=== PATIENT | male | born 1945 | race Caucasian/White ===

== ENCOUNTER 2019-12-29 09:19 | Observation (INO) ==
[2019-12-29] MEDS ORDERED: Ondansetron 4 MG/2 ML VIAL IVP PRN (11:00)
[2019-12-29] MEDS ORDERED: Naloxone 0.4 MG/ML INJ IVP PRN (11:00)
[2019-12-29] MEDS ORDERED: Furosemide 40 MG/4 ML VIAL IVP ONE (12:50)
[2019-12-29] MEDS ORDERED: *HR* Labetalol 20 MG/4 ML SYRINGE IVP PRN (13:03)
[2019-12-29 15:45] LABS: Bacteria,Urine Few per hpf (None-Few); Bilirubin,Urine Negative (Negative); Blood,Urine Trace (Negative); Clarity,Urine Clear (Clear); Color,Urine Light-Yellow (Yellow); Glucose,Urine (UA) Normal (Normal); Ketones,Urine Negative (Negative); Leukocyte Esterase,Urine Negative (Negative); Mucus,Urine Few per lpf (None-Few); Nitrite,Urine Negative (Negative); Protein,Urine 50 mg/dL (Neg-Trace); RBC,Urine 0-3 per hpf (0-3); Urobilinogen,Urine Normal (Normal); WBC,Urine 0-3 per hpf (0-3)
[2019-12-29] MEDS: *HR* Heparin 5,000 UNIT/ML VIAL SQ SCH (17:48)
[2019-12-29] MEDS ORDERED: Perflutren Lipid Microsphere 1.3 ML in 0.9 % Sodium Chloride 8.7 ML IVP ONE (17:58)
[2019-12-30] MEDS: *HR* Heparin 5,000 UNIT/ML VIAL SQ SCH ×2 (05:05→17:45)
[2019-12-30 07:59] LABS: Basophils % 0.7 %; Eosinophils # 0.2 K/mcL (0.0-0.6); Hemoglobin 13.2 g/dL (12.9-16.9); Immature Granulocytes % 0.2 % (0-4); Immature Platelets 3.5 % (1.1-6.1); Lymphocytes # 1.2 K/mcL (0.6-4.6); Lymphocytes % 21.3 %; Mean Corpuscular Hemoglobin 31.4 pg (28.0-33.3); Monocytes # 0.6 K/mcL (0.0-1.3); Monocytes % 10.3 %; Neutrophils # 3.7 K/mcL (1.6-8.9); Platelet Count 124 K/mcL (140-400); Red Blood Count 4.21 M/mcL (4.19-5.50); Red Cell Distribution Width 13.2 % (11.5-14.5); Segmented Neutrophils % 63.5 %; White Blood Count 5.8 K/mcL (4.3-11.1)
[2019-12-30] MEDS ORDERED: *HR* Labetalol 20 MG/4 ML SYRINGE IVP PRN ×2 (08:53→15:10)
[2019-12-30 09:22] LABS: Calcium 9.8 mg/dL (8.6-10.3); Potassium 3.6 mEq/L (3.5-5.1)
[2019-12-30] MEDS: Aspirin Enteric Coated 81 MG Tablet PO SCH (09:34)
[2019-12-30 10:55] LABS: Uric Acid 7.4 mg/dL (2.3-7.6)
[2019-12-30] MEDS ORDERED: Albumin 25% 25gram/100mL 25 GM/100 ML IV.SOLN IVPB ONE (15:00)
[2019-12-30] MEDS ORDERED: Furosemide 40 MG/4 ML VIAL IVP ONE (15:30)
[2019-12-31] MEDS: *HR* Heparin 5,000 UNIT/ML VIAL SQ SCH ×2 (05:55→16:24)
[2019-12-31] MEDS: Aspirin Enteric Coated 81 MG Tablet PO SCH (07:07)
[2019-12-31 11:36] LABS: Calcium 9.4 mg/dL (8.6-10.3); Potassium 3.9 mEq/L (3.5-5.1)
[2019-12-31 20:50] VITALS: BP 169/87
[2020-01-03] MEDS ORDERED: Ergocalciferol (VIT D2) 50,000 UNIT (1.25MG) CAP PO SCH (09:00)
== END 2019-12-31 22:00 | disposition short-term general hospital (02) ==
LOC: 2ANU → SUATTDRO 10:53
PROVIDERS: ADMIT Internal Medicine; ATTEND Internal Medicine

== ENCOUNTER 2020-04-03 10:08 | Inpatient (IN) ==
[2020-04-03 10:46] LABS: Basophils % 0.2 %; Eosinophils % 0.3 %; Hematocrit 21.1 % (37.5-50.1); Hemoglobin 6.9 g/dL (12.9-16.9); Immature Granulocytes % 0.9 % (0-4); Lymphocytes # 0.4 K/mcL (0.6-4.6); Mean Corpuscular HGB Conc 32.7 g/dL (31.6-35.5); Mean Corpuscular Hemoglobin 29.1 pg (28.0-33.3); Mean Platelet Volume 10.6 fL (9.4-12.4); Monocytes # 1.1 K/mcL (0.0-1.3); Monocytes % 8.4 %; Red Blood Count 2.37 M/mcL (4.19-5.50); Red Cell Distribution Width 16.3 % (11.5-14.5); Segmented Neutrophils % 87.2 %
[2020-04-03 10:48] LABS: White Blood Count 12.9 K/mcL (4.3-11.1)
[2020-04-03 10:49] LABS: Neutrophils # 11.3 K/mcL (1.6-8.9); Platelet Count 83 K/mcL (140-400)
[2020-04-03 11:00] LABS: INR 1.6; Prothrombin Time 18.5 Seconds (9.4-12.1)
[2020-04-03 11:07] LABS: Albumin 2.9 g/dL (3.5-5.7); Bilirubin,Direct 0.2 mg/dL (0.0-0.2); Bilirubin,Indirect 0.4 mg/dL (0.0-1.0); Bilirubin,Total 0.6 mg/dL (0.3-1.0); Calcium 8.5 mg/dL (8.6-10.3); Magnesium 1.9 mg/dL (1.6-2.6); Phosphorous 4.3 mg/dL (2.7-4.5); Potassium 3.9 mEq/L (3.5-5.1); Total Protein 5.9 g/dL (6.4-8.9)
[2020-04-03 11:11] LABS: Troponin I 0.19 ng/mL (< 0.04)
[2020-04-03] MEDS ORDERED: Aspirin 81 MG TAB.CHEW PO ONE (11:14)
[2020-04-03 11:58] LABS: Adenovirus Not Detected (Not Detect); Bordetella Pertussis Not Detected (Not Detect); Chlamydophila pneumoniae Not Detected (Not Detect); Coronavirus 229E Not Detected (Not Detect); Coronavirus HKU1 Not Detected (Not Detect); Coronavirus NL63 Not Detected (Not Detect); Coronavirus OC43 Not Detected (Not Detect); Human Metapneumovirus Not Detected (Not Detect); Human Rhinovirus/Enterovirus Not Detected (Not Detect); Influenza A Subtype 2009 H1 Not Detected (Not Detect); Influenza B Not Detected (Not Detect); Mycoplasma pneumoniae Not Detected (Not Detect); Parainfluenza Virus 1 Not Detected (Not Detect); Parainfluenza Virus 2 Not Detected (Not Detect); Parainfluenza Virus 3 Not Detected (Not Detect); Parainfluenza Virus 4 Not Detected (Not Detect); Respiratory Syncytial Virus Not Detected (Not Detect); SARS-CoV-2 Not Detected (Not Detect)
[2020-04-03] MEDS ORDERED: Ondansetron ODT 4 MG TAB.RAPDIS SL PRN (12:21)
[2020-04-03] MEDS ORDERED: Naloxone 0.4 MG/ML INJ IVP PRN (12:21)
[2020-04-03] MEDS ORDERED: Acetaminophen 325 MG TABLET PO PRN (12:21)
[2020-04-03] MEDS ORDERED: Nitroglycerin 0.4 MG TAB.SUBL SL PRN (15:52)
[2020-04-03] MEDS ORDERED: Loratadine 10 MG TABLET PO PRN (15:52)
[2020-04-03] MEDS ORDERED: 0.9 % Sodium Chloride 250 ML IVC SCH (16:00)
[2020-04-03] MEDS ORDERED: Ergocalciferol (VIT D2) 50,000 UNIT (1.25MG) CAP PO SCH (16:00)
[2020-04-03] MEDS: carvediloL 6.25 MG TABLET PO SCH (16:49)
[2020-04-03] MEDS ORDERED: *HR* Heparin 5,000 UNIT/ML VIAL IVP PRN ×2 (20:00)
[2020-04-03] MEDS ORDERED: *HR* Heparin 5,000 UNIT/ML VIAL IVP ONE (20:00)
[2020-04-03] MEDS: Heparin 25,000UNIT/250ML 1/2NS 25,000 UNIT/250 ML IV.SOLN IVC SCH (21:41)
[2020-04-04 02:08] LABS: Hematocrit 21.1 % (37.5-50.1); Immature Platelets 1.9 % (1.1-6.1); Mean Corpuscular HGB Conc 33.2 g/dL (31.6-35.5); Mean Corpuscular Hemoglobin 29.5 pg (28.0-33.3); Mean Platelet Volume 10.4 fL (9.4-12.4); Red Blood Count 2.37 M/mcL (4.19-5.50); Red Cell Distribution Width 16.5 % (11.5-14.5); White Blood Count 10.8 K/mcL (4.3-11.1)
[2020-04-04 02:27] LABS: Calcium 7.9 mg/dL (8.6-10.3); Magnesium 1.8 mg/dL (1.6-2.6); Phosphorous 4.3 mg/dL (2.7-4.5)
[2020-04-04] MEDS ORDERED: Vancomycin 1,500 MG/265 ML IV.SOLN IVPB ONE (08:43)
[2020-04-04] MEDS ORDERED: Perflutren Lipid Microsphere 1.3 ML in 0.9 % Sodium Chloride 8.7 ML IVP PRN (08:43)
[2020-04-04] MEDS ORDERED: Cefepime HCl 1,000 MG in 0.9 % Sodium Chloride Mini Bag 100 ML IVPB SCH (09:00)
[2020-04-04] MEDS: carvediloL 6.25 MG TABLET PO SCH ×2 (10:52→17:44)
[2020-04-04] MEDS: Multivit/Ca/Min/Fe/FA 1 TAB TABLET PO SCH (10:52)
[2020-04-04] MEDS: *HR* Amiodarone 200 MG TABLET PO SCH (10:52)
[2020-04-04] MEDS: Aspirin Enteric Coated 81 MG Tablet PO SCH (10:52)
[2020-04-04] MEDS: allopurinoL 100 MG TABLET PO SCH (10:52)
[2020-04-04] MEDS: *HR* HYDROcodone/Acet 5/325 mg TABLET PO PRN ×2 (13:24→20:12)
[2020-04-04 13:56] LABS: Hepatitis B Surface Antigen Nonreactive (Nonreactive)
[2020-04-04 14:17] LABS: Hepatitis B Core IgM Nonreactive (Nonreactive)
[2020-04-04 14:32] LABS: Enterococcus by PCR Not Detected (Not Detect); blaKPC Carbapenem-Resist Gene Not Detected (Not Detect); mecA Methicillin-Resist Gene Not Detected (Not Detect); vanA/B Vancomycin-Resist Genes Not Detected (Not Detect)
[2020-04-04 14:33] LABS: Acinetobacter baumannii by PCR Not Detected (Not Detect); Candida albicans by PCR Not Detected (Not Detect); Candida glabrata by PCR Not Detected (Not Detect); Candida krusei by PCR Not Detected (Not Detect); Candida parapsilosis by PCR Not Detected (Not Detect); Candida tropicalis by PCR Not Detected (Not Detect); Enterobacter cloacae Cmplx PCR Not Detected (Not Detect); Enterobacteriaceae by PCR Not Detected (Not Detect); Escherichia coli by PCR Not Detected (Not Detect); Klebsiella oxytoca by PCR Not Detected (Not Detect); Klebsiella pneumoniae by PCR Not Detected (Not Detect); Proteus by PCR Not Detected (Not Detect); Pseudomonas aeruginosa by PCR Not Detected (Not Detect); Serratia marcescens by PCR Not Detected (Not Detect); Staphylococcus aureus by PCR Not Detected (Not Detect); Staphylococcus by PCR DETECTED (Not Detect); Streptococcus agalactiae(B)PCR Not Detected (Not Detect); Streptococcus by PCR Not Detected (Not Detect); Streptococcus pneumoniae PCR Not Detected (Not Detect); Streptococcus pyogenes (A) PCR Not Detected (Not Detect)
[2020-04-04 15:38] LABS: Hepatitis B Surface Antibody 5.38 mIU/mL
[2020-04-04] MEDS: DAPTOmycin 600 MG in 0.9 % Sodium Chloride 100 ML IVPB SCH (17:45)
[2020-04-05] MEDS: Heparin 25,000UNIT/250ML 1/2NS 25,000 UNIT/250 ML IV.SOLN IVC SCH (00:51)
[2020-04-05 02:38] LABS: Hematocrit 21.9 % (37.5-50.1); Hemoglobin 7.2 g/dL (12.9-16.9); Immature Platelets 1.9 % (1.1-6.1); Mean Corpuscular HGB Conc 32.9 g/dL (31.6-35.5); Mean Corpuscular Hemoglobin 28.9 pg (28.0-33.3); Mean Platelet Volume 10.5 fL (9.4-12.4); Red Blood Count 2.49 M/mcL (4.19-5.50); Red Cell Distribution Width 16.5 % (11.5-14.5); White Blood Count 9.4 K/mcL (4.3-11.1)
[2020-04-05 02:53] LABS: Calcium 7.8 mg/dL (8.6-10.3); Potassium 3.9 mEq/L (3.5-5.1)
[2020-04-05] MEDS: Multivit/Ca/Min/Fe/FA 1 TAB TABLET PO SCH (08:51)
[2020-04-05] MEDS: *HR* HYDROcodone/Acet 7.5/325 mg TABLET PO PRN (08:51)
[2020-04-05] MEDS: carvediloL 6.25 MG TABLET PO SCH ×2 (08:52→17:09)
[2020-04-05] MEDS: *HR* Amiodarone 200 MG TABLET PO SCH (08:52)
[2020-04-05] MEDS: allopurinoL 100 MG TABLET PO SCH (08:52)
[2020-04-05] MEDS: Aspirin Enteric Coated 81 MG Tablet PO SCH (08:52)
[2020-04-05] MEDS ORDERED: Heparin 1,000 UNITS/500 mL 500 ML ONE (09:49)
[2020-04-05] MEDS ORDERED: Lidocaine/EPI 1:100k 1% 50 ML VIAL ONE (09:49)
[2020-04-05] MEDS ORDERED: *HR* FentaNYL (PF) 100 MCG/2 ML VIAL IVP ONE (10:11)
[2020-04-05] MEDS ORDERED: 0.9 % Sodium Chloride 500 ML ONE (10:12)
[2020-04-05] MEDS ORDERED: *HR* Midazolam HCl 2 MG/2 ML VIAL IVP ONE (10:12)
[2020-04-05] MEDS ORDERED: *HR* Heparin 5,000 UNIT/ML VIAL ONE (10:32)
[2020-04-05] MEDS ORDERED: 0.9 % Sodium Chloride 1,000 ML ONE (10:46)
[2020-04-05] MEDS ORDERED: 0.9 % Sodium Chloride 250 ML IVC PRN (10:54)
[2020-04-05] MEDS ORDERED: 0.9 % Sodium Chloride 1,000 ML PRIME SCH (11:00)
[2020-04-05] MEDS ORDERED: *HR* Heparin 10,000 UNIT/10 ML VIAL IV PRN (12:08)
[2020-04-05 14:00] LABS: Bilirubin,Urine Negative (Negative); Blood,Urine Trace (Negative); Clarity,Urine Clear (Clear); Color,Urine Light-Yellow (Yellow); Glucose,Urine (UA) Normal (Normal); Ketones,Urine Negative (Negative); Leukocyte Esterase,Urine Negative (Negative); Mucus,Urine Few per lpf (None-Few); Nitrite,Urine Negative (Negative); PH,Urine 5.5 pH Units (5.0-8.0); Protein,Urine 30 mg/dL (Neg-Trace); Specific Gravity,Urine 1.017 (1.010-1.025); Squamous Epithelial Cell,Urine Few per hpf (None-Few); Urobilinogen,Urine Normal (Normal); WBC,Urine 0-3 per hpf (0-3)
[2020-04-05] MEDS ORDERED: Darbepoetin 100 MCG/0.5 ML SYRINGE SQ ONE (14:59)
[2020-04-06 01:38] LABS: Hemoglobin 7.3 g/dL (12.9-16.9); Red Cell Distribution Width 16.3 % (11.5-14.5)
[2020-04-06 01:40] LABS: Hematocrit 21.6 % (37.5-50.1); Immature Platelets 1.6 % (1.1-6.1); Mean Corpuscular HGB Conc 33.8 g/dL (31.6-35.5); Mean Corpuscular Hemoglobin 29.7 pg (28.0-33.3); Mean Corpuscular Volume 87.8 fL (83.0-100.0); Mean Platelet Volume 10.1 fL (9.4-12.4); Red Blood Count 2.46 M/mcL (4.19-5.50)
[2020-04-06 02:02] LABS: % Iron Saturation 15 % (20-55); C-Reactive Protein 129 mg/L (Less than 10); Calcium 7.8 mg/dL (8.6-10.3); Iron 23 mcg/dL (65-175); Potassium 3.8 mEq/L (3.5-5.1); Transferrin 111 mg/dL (203-362)
[2020-04-06 02:16] LABS: Ferritin 647 ng/mL (20-250)
[2020-04-06] MEDS: Heparin 25,000UNIT/250ML 1/2NS 25,000 UNIT/250 ML IV.SOLN IVC SCH ×3 (07:20→20:10)
[2020-04-06] MEDS ORDERED: *HR* Heparin 10,000 UNIT/10 ML VIAL IV PRN (07:22)
[2020-04-06] MEDS ORDERED: 0.9 % Sodium Chloride 250 ML IVC PRN (07:22)
[2020-04-06] MEDS ORDERED: 0.9 % Sodium Chloride 1,000 ML PRIME SCH (07:30)
[2020-04-06] MEDS: Multivit/Ca/Min/Fe/FA 1 TAB TABLET PO SCH (07:42)
[2020-04-06] MEDS: Aspirin Enteric Coated 81 MG Tablet PO SCH (07:42)
[2020-04-06] MEDS: allopurinoL 100 MG TABLET PO SCH (07:43)
[2020-04-06] MEDS: *HR* HYDROcodone/Acet 7.5/325 mg TABLET PO PRN ×2 (07:43→20:50)
[2020-04-06] MEDS ORDERED: Ergocalciferol (VIT D2) 50,000 UNIT (1.25MG) CAP PO SCH (09:00)
[2020-04-06] MEDS ORDERED: *HR* Propofol 500 MG/50 ML BOTTLE IVP ONE (11:11)
[2020-04-06] MEDS ORDERED: *HR* Phenylephrine 10 MG/ML VIAL IVC ONE (11:11)
[2020-04-06] MEDS ORDERED: Lidocaine -MPF 2% 5 ML VIAL SQ ONE (11:11)
[2020-04-06] MEDS ORDERED: 0.9 % Sodium Chloride 500 ML IVC ONE (13:00)
[2020-04-06] MEDS ORDERED: Lidocaine Viscous Oral Soln 15 ML SOLUTION MM PRN (13:00)
[2020-04-06] MEDS: *HR* Amiodarone 200 MG TABLET PO SCH (15:05)
[2020-04-06] MEDS: carvediloL 6.25 MG TABLET PO SCH ×2 (15:05→17:41)
[2020-04-06 16:19] LABS: C.difficile Toxin A/B Gene PCR Not detected (Not detect); Campylobacter by PCR Not detected (Not detect); Enteroaggregative E.coli(EAEC) Not detected (Not detect); Enteropathogenic E.coli(EPEC) Not detected (Not detect); Plesiomonas shigelloides PCR Not detected (Not detect); Salmonella PCR Not detected (Not detect); Vibrio PCR Not detected (Not detect); Vibrio cholerae PCR Not detected (Not detect); Yersinia enterocolitica PCR Not detected (Not detect)
[2020-04-06 16:20] LABS: Adenovirus F 40/41 PCR Not detected (Not detect); Astrovirus PCR Not detected (Not detect); Cryptosporidium by PCR Not detected (Not detect); Cyclospora cayetanensis PCR Not detected (Not detect); E. coli O157 by PCR Not detected (Not detect); Entamoeba histolytica PCR Not detected (Not detect); Enterotoxigenic E.coli (ETEC) Not detected (Not detect); Giardia lamblia PCR Not detected (Not detect); Norovirus GI/GII PCR Not detected (Not detect); Rotavirus A PCR Not detected (Not detect); Sapovirus PCR Not detected (Not detect); Shig/EnteroinvasiveE coli EIEC Not detected (Not detect); Shigalike tox-prod E coli STEC Not detected (Not detect)
[2020-04-06] MEDS: DAPTOmycin 600 MG in 0.9 % Sodium Chloride 100 ML IVPB SCH (17:41)
[2020-04-06] MEDS ORDERED: DESMOPRESSIN ACETATE IVPB ONE (17:45)
[2020-04-06] MEDS ORDERED: SODIUM CHLORIDE 0.9% IVPB ONE (17:45)
[2020-04-06] MEDS: Apixaban 2.5 MG TABLET PO SCH (20:45)
[2020-04-07] MEDS: carvediloL 6.25 MG TABLET PO SCH ×2 (07:35→18:21)
[2020-04-07 07:42] LABS: Basophils % 0.1 %; Red Blood Count 2.42 M/mcL (4.19-5.50)
[2020-04-07 07:43] LABS: Immature Reticulocyte % 13.2 % (11.0-38.0); Retculocyte # 0.03 M/mcL (0.05-0.10); Reticulocyte % 1.2 % (1.6-2.8)
[2020-04-07 07:44] LABS: Eosinophils # 0.2 K/mcL (0.0-0.6); Eosinophils % 2.9 %; Hematocrit 21.6 % (37.5-50.1); Hemoglobin 6.8 g/dL (12.9-16.9); Immature Granulocytes % 0.6 % (0-4); Lymphocytes # 0.8 K/mcL (0.6-4.6); Lymphocytes % 10.6 %; Mean Corpuscular HGB Conc 31.5 g/dL (31.6-35.5); Mean Corpuscular Hemoglobin 28.1 pg (28.0-33.3); Mean Corpuscular Volume 89.3 fL (83.0-100.0); Mean Platelet Volume 10.3 fL (9.4-12.4); Monocytes # 0.8 K/mcL (0.0-1.3); Monocytes % 10.3 %; Neutrophils # 5.5 K/mcL (1.6-8.9); Red Cell Distribution Width 16.7 % (11.5-14.5); Segmented Neutrophils % 75.5 %; White Blood Count 7.3 K/mcL (4.3-11.1)
[2020-04-07 07:53] LABS: Platelet Count 73 K/mcL (140-400)
[2020-04-07] MEDS: allopurinoL 100 MG TABLET PO SCH (08:27)
[2020-04-07] MEDS: *HR* Amiodarone 200 MG TABLET PO SCH (08:27)
[2020-04-07] MEDS: Multivit/Ca/Min/Fe/FA 1 TAB TABLET PO SCH (08:27)
[2020-04-07] MEDS: Aspirin Enteric Coated 81 MG Tablet PO SCH (08:28)
[2020-04-07] MEDS ORDERED: 0.9 % Sodium Chloride 250 ML IVC SCH (08:30)
[2020-04-07 08:31] LABS: Potassium 3.7 mEq/L (3.5-5.1)
[2020-04-07] MEDS: Apixaban 2.5 MG TABLET PO SCH (08:31)
[2020-04-07] MEDS: *HR* HYDROcodone/Acet 5/325 mg TABLET PO PRN ×2 (08:50→14:59)
[2020-04-07] MEDS ORDERED: 0.9 % Sodium Chloride 250 ML IVC PRN (09:18)
[2020-04-07] MEDS ORDERED: Albumin 25% 25gram/100mL 25 GM/100 ML IV.SOLN IVPB PRN (09:18)
[2020-04-07] MEDS ORDERED: *HR* Heparin 10,000 UNIT/10 ML VIAL IV PRN (09:18)
[2020-04-07] MEDS ORDERED: 0.9 % Sodium Chloride 500 ML ONE (11:14)
[2020-04-07 15:32] LABS: % Iron Saturation 33 % (20-55); Iron 62 mcg/dL (65-175); Transferrin 133 mg/dL (203-362)
[2020-04-07 15:57] LABS: Folate 7.2 ng/mL (3.0-16.0)
[2020-04-07] MEDS: Pantoprazole 40 MG VIAL IVP SCH (18:22)
[2020-04-08 02:32] LABS: Immature Granulocytes % 0.7 % (0-4); Red Blood Count 2.96 M/mcL (4.19-5.50); Red Cell Distribution Width 16.7 % (11.5-14.5)
[2020-04-08 02:34] LABS: Basophils % 0.2 %; Eosinophils # 0.2 K/mcL (0.0-0.6); Hematocrit 25.9 % (37.5-50.1); Hemoglobin 8.7 g/dL (12.9-16.9); Immature Platelets 1.9 % (1.1-6.1); Lymphocytes # 0.8 K/mcL (0.6-4.6); Lymphocytes % 7.6 %; Mean Corpuscular HGB Conc 33.6 g/dL (31.6-35.5); Mean Corpuscular Hemoglobin 29.4 pg (28.0-33.3); Mean Corpuscular Volume 87.5 fL (83.0-100.0); Monocytes % 9.8 %; Neutrophils # 7.9 K/mcL (1.6-8.9); Segmented Neutrophils % 79.7 %; White Blood Count 9.9 K/mcL (4.3-11.1)
[2020-04-08 02:39] LABS: Platelet Count 83 K/mcL (140-400)
[2020-04-08 02:47] LABS: Calcium 8.1 mg/dL (8.6-10.3); Potassium 3.8 mEq/L (3.5-5.1)
[2020-04-08] MEDS: Pantoprazole 40 MG VIAL IVP SCH ×2 (05:07→18:03)
[2020-04-08] MEDS: Multivit/Ca/Min/Fe/FA 1 TAB TABLET PO SCH (08:30)
[2020-04-08] MEDS: carvediloL 6.25 MG TABLET PO SCH ×2 (08:30→16:05)
[2020-04-08] MEDS: Aspirin Enteric Coated 81 MG Tablet PO SCH (08:30)
[2020-04-08] MEDS: Apixaban 2.5 MG TABLET PO SCH ×2 (08:30→19:55)
[2020-04-08] MEDS: allopurinoL 100 MG TABLET PO SCH (08:30)
[2020-04-08] MEDS ORDERED: Lidocaine -MPF 2% 2 ML VIAL ONE (11:17)
[2020-04-08] MEDS ORDERED: *HR* PHENYLEPHRINE 1,000 MCG/10 ML SYRINGE IVP ONE (11:42)
[2020-04-08] MEDS ORDERED: EPHEDrine 50 MG/ML VIAL ONE (11:56)
[2020-04-08] MEDS: *HR* Amiodarone 200 MG TABLET PO SCH (16:05)
[2020-04-08] MEDS: DAPTOmycin 600 MG in 0.9 % Sodium Chloride 100 ML IVPB SCH (16:05)
[2020-04-08] MEDS: *HR* HYDROcodone/Acet 7.5/325 mg TABLET PO PRN (16:18)
[2020-04-09 03:44] LABS: Potassium 3.6 mEq/L (3.5-5.1)
[2020-04-09] MEDS: Pantoprazole 40 MG VIAL IVP SCH ×2 (04:25→17:48)
[2020-04-09 05:37] LABS: Hematocrit 25.9 % (37.5-50.1); Hemoglobin 8.4 g/dL (12.9-16.9); Red Blood Count 2.85 M/mcL (4.19-5.50); White Blood Count 10.4 K/mcL (4.3-11.1)
[2020-04-09 05:38] LABS: Mean Corpuscular HGB Conc 32.4 g/dL (31.6-35.5); Mean Corpuscular Hemoglobin 29.5 pg (28.0-33.3); Mean Corpuscular Volume 90.9 fL (83.0-100.0)
[2020-04-09 05:39] LABS: Basophils % 0.3 %; Eosinophils # 0.2 K/mcL (0.0-0.6); Eosinophils % 1.5 %; Immature Granulocytes % 0.5 % (0-4); Immature Platelets 2.5 % (1.1-6.1); Lymphocytes # 0.6 K/mcL (0.6-4.6); Lymphocytes % 5.5 %; Mean Platelet Volume 11.5 fL (9.4-12.4); Monocytes # 0.9 K/mcL (0.0-1.3); Neutrophils # 8.7 K/mcL (1.6-8.9); Platelet Count 71 K/mcL (140-400); Segmented Neutrophils % 83.2 %
[2020-04-09] MEDS: Apixaban 2.5 MG TABLET PO SCH ×2 (08:22→19:42)
[2020-04-09] MEDS: allopurinoL 100 MG TABLET PO SCH (08:22)
[2020-04-09] MEDS: Aspirin Enteric Coated 81 MG Tablet PO SCH (08:22)
[2020-04-09] MEDS: carvediloL 6.25 MG TABLET PO SCH ×2 (08:22→17:48)
[2020-04-09] MEDS: Multivit/Ca/Min/Fe/FA 1 TAB TABLET PO SCH (08:22)
[2020-04-09] MEDS: *HR* Amiodarone 200 MG TABLET PO SCH (08:22)
[2020-04-09] MEDS ORDERED: 0.9 % Sodium Chloride 250 ML IVC PRN (09:00)
[2020-04-09] MEDS ORDERED: *HR* Heparin 10,000 UNIT/10 ML VIAL IV PRN (09:18)
[2020-04-09] MEDS ORDERED: Vancomycin 1 EACH in 0.9 % Sodium Chloride 250 ML IVPB SCH (11:00)
[2020-04-09] MEDS ORDERED: Vancomycin 1,500 MG/265 ML IV.SOLN IVPB SCH (11:00)
[2020-04-09] MEDS ORDERED: Vancomycin 2,000 MG/520 ML IV.SOLN IVPB ONE (16:27)
[2020-04-09] MEDS: *HR* HYDROcodone/Acet 7.5/325 mg TABLET PO PRN (18:07)
[2020-04-10] MEDS: Pantoprazole 40 MG VIAL IVP SCH ×2 (05:15→17:12)
[2020-04-10] MEDS: *HR* HYDROcodone/Acet 7.5/325 mg TABLET PO PRN ×2 (05:17→22:41)
[2020-04-10] MEDS: Aspirin Enteric Coated 81 MG Tablet PO SCH (08:59)
[2020-04-10] MEDS: Multivit/Ca/Min/Fe/FA 1 TAB TABLET PO SCH (08:59)
[2020-04-10] MEDS: Apixaban 2.5 MG TABLET PO SCH ×2 (08:59→19:22)
[2020-04-10] MEDS: *HR* Amiodarone 200 MG TABLET PO SCH (08:59)
[2020-04-10] MEDS: allopurinoL 100 MG TABLET PO SCH (08:59)
[2020-04-10 09:07] LABS: Acinetobacter baumannii by PCR Not Detected (Not Detect); Candida albicans by PCR Not Detected (Not Detect); Candida glabrata by PCR Not Detected (Not Detect); Candida krusei by PCR Not Detected (Not Detect); Candida parapsilosis by PCR Not Detected (Not Detect); Candida tropicalis by PCR Not Detected (Not Detect); Enterobacter cloacae Cmplx PCR Not Detected (Not Detect); Enterobacteriaceae by PCR Not Detected (Not Detect); Enterococcus by PCR Not Detected (Not Detect); Escherichia coli by PCR Not Detected (Not Detect); Klebsiella oxytoca by PCR Not Detected (Not Detect); Klebsiella pneumoniae by PCR Not Detected (Not Detect); Proteus by PCR Not Detected (Not Detect); Pseudomonas aeruginosa by PCR Not Detected (Not Detect); Serratia marcescens by PCR Not Detected (Not Detect); Staphylococcus aureus by PCR Not Detected (Not Detect); Staphylococcus by PCR DETECTED (Not Detect); Streptococcus agalactiae(B)PCR Not Detected (Not Detect); Streptococcus by PCR Not Detected (Not Detect); Streptococcus pneumoniae PCR Not Detected (Not Detect); Streptococcus pyogenes (A) PCR Not Detected (Not Detect); blaKPC Carbapenem-Resist Gene Not Detected (Not Detect); mecA Methicillin-Resist Gene Not Detected (Not Detect); vanA/B Vancomycin-Resist Genes Not Detected (Not Detect)
[2020-04-10 09:59] LABS: Hemoglobin 8.6 g/dL (12.9-16.9)
[2020-04-10 10:01] LABS: Hematocrit 26.7 % (37.5-50.1); Immature Platelets 2.7 % (1.1-6.1); Mean Corpuscular HGB Conc 32.2 g/dL (31.6-35.5); Mean Corpuscular Hemoglobin 28.7 pg (28.0-33.3); Mean Platelet Volume 10.1 fL (9.4-12.4); Red Cell Distribution Width 16.8 % (11.5-14.5); White Blood Count 10.6 K/mcL (4.3-11.1)
[2020-04-10 10:11] LABS: Calcium 7.8 mg/dL (8.6-10.3); Potassium 3.9 mEq/L (3.5-5.1)
[2020-04-10] MEDS: carvediloL 6.25 MG TABLET PO SCH ×2 (13:37→17:12)
[2020-04-11] MEDS: Pantoprazole 40 MG VIAL IVP SCH (04:11)
[2020-04-11 06:32] LABS: Hematocrit 28.4 % (37.5-50.1); Immature Platelets 2.3 % (1.1-6.1); Mean Corpuscular HGB Conc 31.7 g/dL (31.6-35.5); Mean Corpuscular Hemoglobin 28.7 pg (28.0-33.3); Mean Corpuscular Volume 90.4 fL (83.0-100.0); Mean Platelet Volume 10.1 fL (9.4-12.4); Red Blood Count 3.14 M/mcL (4.19-5.50); Red Cell Distribution Width 16.6 % (11.5-14.5); White Blood Count 10.7 K/mcL (4.3-11.1)
[2020-04-11 06:51] LABS: Calcium 8.2 mg/dL (8.6-10.3); Potassium 4.4 mEq/L (3.5-5.1)
[2020-04-11] MEDS ORDERED: *HR* Heparin 10,000 UNIT/10 ML VIAL IV PRN (07:22)
[2020-04-11] MEDS ORDERED: 0.9 % Sodium Chloride 250 ML IVC PRN (07:22)
[2020-04-11] MEDS ORDERED: 0.9 % Sodium Chloride 1,000 ML PRIME SCH (07:30)
[2020-04-11] MEDS: carvediloL 6.25 MG TABLET PO SCH ×2 (10:47→17:24)
[2020-04-11] MEDS: *HR* HYDROcodone/Acet 7.5/325 mg TABLET PO PRN (12:01)
[2020-04-11] MEDS: Multivit/Ca/Min/Fe/FA 1 TAB TABLET PO SCH (12:01)
[2020-04-11] MEDS: Apixaban 2.5 MG TABLET PO SCH ×2 (12:01→20:04)
[2020-04-11] MEDS: Aspirin Enteric Coated 81 MG Tablet PO SCH (12:01)
[2020-04-11] MEDS: *HR* Amiodarone 200 MG TABLET PO SCH (12:01)
[2020-04-11] MEDS: allopurinoL 100 MG TABLET PO SCH (12:02)
[2020-04-11] MEDS: Gentamicin Oint 15 GM TUBE TP SCH (17:26)
[2020-04-12 02:34] LABS: Hematocrit 28.9 % (37.5-50.1); Hemoglobin 9.2 g/dL (12.9-16.9); Mean Corpuscular HGB Conc 31.8 g/dL (31.6-35.5); Mean Corpuscular Hemoglobin 28.6 pg (28.0-33.3); Mean Corpuscular Volume 89.8 fL (83.0-100.0); Mean Platelet Volume 11.2 fL (9.4-12.4); Red Blood Count 3.22 M/mcL (4.19-5.50); Red Cell Distribution Width 16.3 % (11.5-14.5); White Blood Count 10.3 K/mcL (4.3-11.1)
[2020-04-12] MEDS: *HR* HYDROcodone/Acet 7.5/325 mg TABLET PO PRN ×2 (02:40→14:01)
[2020-04-12 02:53] LABS: Potassium 4.7 mEq/L (3.5-5.1)
[2020-04-12] MEDS ORDERED: 0.9 % Sodium Chloride 250 ML IVC PRN (07:26)
[2020-04-12] MEDS ORDERED: *HR* Heparin 10,000 UNIT/10 ML VIAL IV PRN (07:26)
[2020-04-12] MEDS ORDERED: 0.9 % Sodium Chloride 1,000 ML PRIME SCH (07:30)
[2020-04-12] MEDS: carvediloL 6.25 MG TABLET PO SCH ×2 (08:00→17:01)
[2020-04-12] MEDS: *HR* Amiodarone 200 MG TABLET PO SCH (14:00)
[2020-04-12] MEDS: Aspirin Enteric Coated 81 MG Tablet PO SCH (14:00)
[2020-04-12] MEDS: Multivit/Ca/Min/Fe/FA 1 TAB TABLET PO SCH (14:00)
[2020-04-12] MEDS: Apixaban 2.5 MG TABLET PO SCH (14:00)
[2020-04-12] MEDS: allopurinoL 100 MG TABLET PO SCH (14:01)
[2020-04-12] MEDS: Gentamicin Oint 15 GM TUBE TP SCH (14:04)
[2020-04-12 16:10] VITALS: BP 107/67
== END 2020-04-12 18:07 | disposition short-term general hospital (02) | DRG 871 ==
LOC: 2ANU 10:08 → EMEROOARM 10:08 → 2ANU 13:00 → SUATTDRO 13:10
PROVIDERS: ADMIT Internal Medicine; ATTEND Internal Medicine
PROC: ENDOEBX (2020-04-08 10:25)

== ENCOUNTER 2020-05-02 23:41 | Inpatient (IN) ==
[2020-05-03] MEDS ORDERED: Ipratropium/Albuterol Neb 3 ML IH ONE (00:08)
[2020-05-03] MEDS ORDERED: Dexamethasone 4 MG/ML VIAL IVP ONE (00:08)
[2020-05-03] MEDS ORDERED: 0.9 % Sodium Chloride 1,000 ML IVC ONE (00:08)
[2020-05-03 00:43] LABS: Red Blood Count 2.73 M/mcL (4.19-5.50); Red Cell Distribution Width 16.8 % (11.5-14.5); White Blood Count 21.6 K/mcL (4.3-11.1)
[2020-05-03 00:45] LABS: Hematocrit 24.2 % (37.5-50.1); Hemoglobin 7.6 g/dL (12.9-16.9); Immature Platelets 6.5 % (1.1-6.1); Mean Corpuscular HGB Conc 31.4 g/dL (31.6-35.5); Mean Corpuscular Hemoglobin 27.8 pg (28.0-33.3); Mean Corpuscular Volume 88.6 fL (83.0-100.0); Mean Platelet Volume 10.3 fL (9.4-12.4)
[2020-05-03 00:45] LABS: ABG Base Excess -2 mEq/L (-2 to 3); ABG HCO3 24 mEq/L (21-27); ABG Oxygen Saturation 31 % (95-98); ABG PCO2 43 mmHg (35-45); ABG PH 7.36 pH Units (7.32-7.45); ABG PO2 21 mmHg (85-104); ABG TCO2 25 mEq/L (20-26)
[2020-05-03 00:50] LABS: Platelet Count 56 K/mcL (140-400)
[2020-05-03] MEDS ORDERED: Meropenem 1,000 MG in Water for inj. (sterile) 20 ML IVP STA (00:52)
[2020-05-03 01:05] LABS: Albumin 2.5 g/dL (3.5-5.7); Albumin/Globulin Ratio 0.8 (1.1-2.2); Bilirubin,Direct 0.4 mg/dL (0.0-0.2); Bilirubin,Indirect 0.4 mg/dL (0.0-1.0); Bilirubin,Total 0.8 mg/dL (0.3-1.0); Calcium 7.6 mg/dL (8.6-10.3); Globulin 3.1 g/dL (2.4-3.5); Magnesium 1.8 mg/dL (1.6-2.6); Potassium 4.4 mEq/L (3.5-5.1); Total Protein 5.6 g/dL (6.4-8.9)
[2020-05-03 01:07] LABS: Lymphocytes # 0.4 K/mcL (0.6-4.6); Monocytes # 0.4 K/mcL (0.0-1.3); Neutrophils # 20.7 K/mcL (1.6-8.9); Platelet Estimate Decreased (Normal); Poikilocytosis 1+ (Not Present)
[2020-05-03 01:08] LABS: Troponin I 2.03 ng/mL (< 0.04)
[2020-05-03 02:06] LABS: Adenovirus Not Detected (Not Detect); Coronavirus 229E Not Detected (Not Detect); Coronavirus HKU1 Not Detected (Not Detect); Coronavirus NL63 Not Detected (Not Detect); Coronavirus OC43 Not Detected (Not Detect)
[2020-05-03 02:07] LABS: Bordetella Pertussis Not Detected (Not Detect); Chlamydophila pneumoniae Not Detected (Not Detect); Human Metapneumovirus Not Detected (Not Detect); Human Rhinovirus/Enterovirus Not Detected (Not Detect); Influenza A Subtype 2009 H1 Not Detected (Not Detect); Influenza B Not Detected (Not Detect); Mycoplasma pneumoniae Not Detected (Not Detect); Parainfluenza Virus 1 Not Detected (Not Detect); Parainfluenza Virus 2 Not Detected (Not Detect); Parainfluenza Virus 3 Not Detected (Not Detect); Parainfluenza Virus 4 Not Detected (Not Detect); Respiratory Syncytial Virus Not Detected (Not Detect); SARS-CoV-2 DETECTED (Not Detect)
[2020-05-03] MEDS ORDERED: 0.9 % Sodium Chloride 250 ML ONE (03:18)
[2020-05-03] MEDS ORDERED: Naloxone 0.4 MG/ML INJ IVP PRN (09:39)
[2020-05-03] MEDS ORDERED: Ondansetron ODT 4 MG TAB.RAPDIS SL PRN (09:39)
[2020-05-03] MEDS: Ipratropium 1 PUFF INHALER IH SCH ×4 (11:07→23:45)
[2020-05-03 11:23] LABS: Fibrinogen 384 mg/dL (169-393)
[2020-05-03 11:26] LABS: Hematocrit 27.1 % (37.5-50.1); Hemoglobin 8.7 g/dL (12.9-16.9)
[2020-05-03 11:27] LABS: Lactate Dehydrogenase 383 Units/L (140-271)
[2020-05-03 11:43] LABS: Ferritin > 1500 ng/mL (20-250)
[2020-05-03 11:58] LABS: D-Dimer 3563 ng/mLFEU (0-500)
[2020-05-03 14:55] LABS: Acinetobacter baumannii by PCR Not Detected (Not Detect); Enterobacter cloacae Cmplx PCR Not Detected (Not Detect); Enterococcus by PCR Not Detected (Not Detect); Escherichia coli by PCR DETECTED (Not Detect); Staphylococcus aureus by PCR Not Detected (Not Detect); Staphylococcus by PCR Not Detected (Not Detect); Streptococcus agalactiae(B)PCR Not Detected (Not Detect); Streptococcus by PCR Not Detected (Not Detect); Streptococcus pneumoniae PCR Not Detected (Not Detect); Streptococcus pyogenes (A) PCR Not Detected (Not Detect); blaKPC Carbapenem-Resist Gene Not Detected (Not Detect); mecA Methicillin-Resist Gene Not Detected (Not Detect); vanA/B Vancomycin-Resist Genes Not Detected (Not Detect)
[2020-05-03 14:56] LABS: Candida albicans by PCR Not Detected (Not Detect); Candida glabrata by PCR Not Detected (Not Detect); Candida krusei by PCR Not Detected (Not Detect); Candida parapsilosis by PCR Not Detected (Not Detect); Candida tropicalis by PCR Not Detected (Not Detect); Klebsiella oxytoca by PCR Not Detected (Not Detect); Klebsiella pneumoniae by PCR Not Detected (Not Detect); Proteus by PCR Not Detected (Not Detect); Pseudomonas aeruginosa by PCR Not Detected (Not Detect); Serratia marcescens by PCR Not Detected (Not Detect)
[2020-05-03] MEDS: carvediloL 6.25 MG TABLET PO SCH (15:52)
[2020-05-03] MEDS: Torsemide 20 MG TABLET PO SCH (15:52)
[2020-05-03 16:17] LABS: RBC,Pleural Fluid < 2000 RBC/mcL
[2020-05-03 16:28] LABS: Amylase,Pleural Fluid < 10 Units/L (No Ref Range); Glucose,Pleural Fluid 115 mg/dL (No Ref Range); LDH,Pleural Fluid 116 Units/L (No Ref Range); Total Protein,Pleural Fluid 2.7 g/dL
[2020-05-03 16:30] LABS: Appearance of Pleural Fl Clear (Clear)
[2020-05-03] MEDS: Gentamicin Oint 15 GM TUBE TP SCH (17:04)
[2020-05-03 17:11] LABS: Basophils,Pleural Fluid 0 %; Eosinophils,Pleural Fluid 0 %
[2020-05-03 17:17] LABS: Hematocrit 29.6 % (37.5-50.1); Hemoglobin 9.4 g/dL (12.9-16.9)
[2020-05-03] MEDS: Acetaminophen 325 MG TABLET PO PRN (17:18)
[2020-05-03] MEDS ORDERED: Meropenem 500 MG in 0.9 % Sodium Chloride Mini Bag 100 ML IVPB SCH (21:00)
[2020-05-03] MEDS: Melatonin 3 MG TABLET PO SCH (21:31)
[2020-05-03] MEDS: Folic Acid 1 MG TABLET PO SCH (21:31)
[2020-05-03] MEDS: Apixaban 2.5 MG TABLET PO SCH (21:32)
[2020-05-03 22:21] LABS: Hematocrit 28.5 % (37.5-50.1)
[2020-05-04 01:55] LABS: Basophils % 0.1 %; Mean Corpuscular Hemoglobin 28.1 pg (28.0-33.3)
[2020-05-04 01:58] LABS: Hematocrit 29.2 % (37.5-50.1); Hemoglobin 9.1 g/dL (12.9-16.9); Immature Granulocytes % 0.6 % (0-4); Immature Platelets 7.9 % (1.1-6.1); Lymphocytes # 0.9 K/mcL (0.6-4.6); Lymphocytes % 5.2 %; Mean Corpuscular HGB Conc 31.2 g/dL (31.6-35.5); Mean Corpuscular Volume 90.1 fL (83.0-100.0); Mean Platelet Volume 11.1 fL (9.4-12.4); Monocytes # 0.6 K/mcL (0.0-1.3); Monocytes % 3.8 %; Neutrophils # 14.8 K/mcL (1.6-8.9); Red Blood Count 3.24 M/mcL (4.19-5.50); Red Cell Distribution Width 16.5 % (11.5-14.5); Segmented Neutrophils % 90.3 %; White Blood Count 16.4 K/mcL (4.3-11.1)
[2020-05-04] MEDS ORDERED: *HR* Metoprolol 5 MG/5 ML VIAL IVP PRN (02:18)
[2020-05-04 02:24] LABS: Platelet Count 69 K/mcL (140-400)
[2020-05-04 02:37] LABS: Albumin 2.5 g/dL (3.5-5.7); Albumin/Globulin Ratio 0.8 (1.1-2.2); Bilirubin,Total 0.5 mg/dL (0.3-1.0); Calcium 7.5 mg/dL (8.6-10.3); Total Protein 5.5 g/dL (6.4-8.9)
[2020-05-04] MEDS: Ipratropium 1 PUFF INHALER IH SCH ×6 (03:52→23:33)
[2020-05-04 07:24] LABS: Hepatitis B Surface Antibody < 3.10 mIU/mL
[2020-05-04] MEDS ORDERED: 0.9 % Sodium Chloride 250 ML IVC PRN (07:28)
[2020-05-04] MEDS ORDERED: *HR* Heparin 10,000 UNIT/10 ML VIAL IV PRN (07:28)
[2020-05-04] MEDS ORDERED: 0.9 % Sodium Chloride 1,000 ML PRIME SCH (07:30)
[2020-05-04] MEDS: carvediloL 6.25 MG TABLET PO SCH ×2 (07:34→17:07)
[2020-05-04 07:36] LABS: Hepatitis B Surface Antigen Nonreactive (Nonreactive)
[2020-05-04] MEDS: Apixaban 2.5 MG TABLET PO SCH ×2 (07:43→22:02)
[2020-05-04] MEDS: Aspirin Enteric Coated 81 MG Tablet PO SCH (07:43)
[2020-05-04] MEDS: Folic Acid 1 MG TABLET PO SCH (07:43)
[2020-05-04] MEDS: allopurinoL 100 MG TABLET PO SCH (07:43)
[2020-05-04] MEDS: Torsemide 20 MG TABLET PO SCH (07:43)
[2020-05-04] MEDS: Loratadine 10 MG TABLET PO SCH (07:44)
[2020-05-04] MEDS ORDERED: Dexamethasone 4 MG/ML VIAL IVP SCH ×2 (09:00)
[2020-05-04] MEDS ORDERED: *HR* Amiodarone 200 MG TABLET PO SCH (09:00)
[2020-05-04] MEDS ORDERED: Perflutren Lipid Microsphere 1.3 ML in 0.9 % Sodium Chloride 8.7 ML IVP PRN (12:34)
[2020-05-04] MEDS: Gentamicin Oint 15 GM TUBE TP SCH (13:32)
[2020-05-04] MEDS ORDERED: Calcium Gluconate 1gm/50mL 1 GM/50 ML BAG IVPB SCH (15:00)
[2020-05-04] MEDS ORDERED: Furosemide 40 MG/4 ML VIAL IVP SCH ×2 (21:00)
[2020-05-04] MEDS: Meropenem 500 MG in 0.9 % Sodium Chloride Mini Bag 100 ML IVPB SCH (21:56)
[2020-05-04] MEDS: Melatonin 3 MG TABLET PO SCH (21:56)
[2020-05-04] MEDS: Furosemide 40 MG/4 ML VIAL IVP SCH (22:01)
[2020-05-05] MEDS: Ipratropium 1 PUFF INHALER IH SCH ×6 (03:34→23:46)
[2020-05-05] MEDS ORDERED: 0.9 % Sodium Chloride 250 ML IVC PRN (07:39)
[2020-05-05] MEDS ORDERED: *HR* Heparin 10,000 UNIT/10 ML VIAL IV PRN (07:39)
[2020-05-05 09:00] LABS: Hematocrit 26.8 % (37.5-50.1); Hemoglobin 8.8 g/dL (12.9-16.9); Mean Corpuscular HGB Conc 32.8 g/dL (31.6-35.5); Mean Corpuscular Hemoglobin 28.6 pg (28.0-33.3); Mean Platelet Volume 11.5 fL (9.4-12.4); Red Blood Count 3.08 M/mcL (4.19-5.50); Red Cell Distribution Width 16.5 % (11.5-14.5); White Blood Count 9.7 K/mcL (4.3-11.1)
[2020-05-05 09:01] LABS: Platelet Count 72 K/mcL (140-400)
[2020-05-05 09:09] LABS: Activated Partial Thrombo Time 27.5 Seconds (26.0-36.0)
[2020-05-05 09:10] LABS: INR 1.5
[2020-05-05 09:15] LABS: % Iron Saturation 28 % (20-55); Alanine Aminotransferase 81 Units/L (7-52); Albumin 2.5 g/dL (3.5-5.7); Albumin/Globulin Ratio 0.8 (1.1-2.2); Alkaline Phosphatase 167 Units/L (34-104); Aspartate Amino Transferase 64 Units/L (13-39); BUN/Creatinine Ratio 8 (6-26); Bilirubin,Total 0.6 mg/dL (0.3-1.0); Blood Urea Nitrogen 46 mg/dL (8-23); Calcium 7.5 mg/dL (8.6-10.3); Carbon Dioxide 25 mEq/L (23-29); Chloride 96 mEq/L (98-107); Globulin 3.1 g/dL (2.4-3.5); Glucose 103 mg/dL (70-105); Iron 53 mcg/dL (65-175); Lactate Dehydrogenase 293 Units/L (140-271); Osmolality,Calculated 284 (280-300); Phosphorous 4.5 mg/dL (2.7-4.5); Potassium 4.4 mEq/L (3.5-5.1); Sodium 131 mEq/L (136-145); Total Protein 5.6 g/dL (6.4-8.9); Transferrin 133 mg/dL (203-362); eGFR For African Americans 13 (> 60); eGFR For Non-African Americans 10 (> 60)
[2020-05-05 09:39] LABS: C-Reactive Protein 66 mg/L (Less than 10); Ferritin > 1500 ng/mL (20-250)
[2020-05-05 10:04] LABS: Folate 9.8 ng/mL (3.0-16.0)
[2020-05-05] MEDS: Furosemide 40 MG/4 ML VIAL IVP SCH ×2 (13:59→20:55)
[2020-05-05] MEDS: Aspirin Enteric Coated 81 MG Tablet PO SCH (13:59)
[2020-05-05] MEDS: Renal Vitamin 1 CAP CAPSULE PO SCH (13:59)
[2020-05-05] MEDS: Apixaban 2.5 MG TABLET PO SCH ×2 (13:59→20:55)
[2020-05-05] MEDS: Folic Acid 1 MG TABLET PO SCH (13:59)
[2020-05-05] MEDS: carvediloL 6.25 MG TABLET PO SCH ×2 (13:59→16:13)
[2020-05-05] MEDS: Loratadine 10 MG TABLET PO SCH (14:00)
[2020-05-05] MEDS: Gentamicin Oint 15 GM TUBE TP SCH (14:00)
[2020-05-05] MEDS: allopurinoL 100 MG TABLET PO SCH (14:01)
[2020-05-05] MEDS: Acetaminophen 325 MG TABLET PO PRN (16:14)
[2020-05-05] MEDS: Melatonin 3 MG TABLET PO SCH (20:55)
[2020-05-05] MEDS: Meropenem 500 MG in 0.9 % Sodium Chloride Mini Bag 100 ML IVPB SCH (20:56)
[2020-05-06] MEDS: Ipratropium 1 PUFF INHALER IH SCH ×5 (03:15→19:47)
[2020-05-06 06:09] LABS: Calcium 7.4 mg/dL (8.6-10.3); Potassium 3.7 mEq/L (3.5-5.1)
[2020-05-06] MEDS: Acetaminophen 325 MG TABLET PO PRN (10:02)
[2020-05-06] MEDS: allopurinoL 100 MG TABLET PO SCH (10:02)
[2020-05-06] MEDS: Renal Vitamin 1 CAP CAPSULE PO SCH (10:02)
[2020-05-06] MEDS: Loratadine 10 MG TABLET PO SCH (10:02)
[2020-05-06] MEDS: Apixaban 2.5 MG TABLET PO SCH ×2 (10:02→21:14)
[2020-05-06] MEDS: Folic Acid 1 MG TABLET PO SCH (10:03)
[2020-05-06] MEDS: Aspirin Enteric Coated 81 MG Tablet PO SCH (10:03)
[2020-05-06] MEDS: Furosemide 40 MG/4 ML VIAL IVP SCH ×2 (10:03→21:12)
[2020-05-06] MEDS: Gentamicin Oint 15 GM TUBE TP SCH (10:03)
[2020-05-06] MEDS ORDERED: carvediloL 6.25 MG TABLET PO SCH (17:00)
[2020-05-06 19:23] VITALS: BP 135/83
[2020-05-06] MEDS ORDERED: Meropenem 1,000 MG in 0.9 % Sodium Chloride Mini Bag 100 ML IVPB SCH (21:00)
[2020-05-06] MEDS: Melatonin 3 MG TABLET PO SCH (21:13)
== END 2020-05-06 23:31 | disposition short-term general hospital (02) | DRG 871 ==
LOC: 2NENU 23:41 → EMEROOARM 23:41 → 2NENU 05-03 08:30 → SUATTDRO 05-03 16:55 → 2NENU 05-04 20:23
PROVIDERS: ADMIT Student in an Organized Health Care Education/Training Program; ATTEND Internal Medicine

== ENCOUNTER 2020-06-29 12:09 | Inpatient (IN) ==
[2020-06-29] MEDS ORDERED: Ipratropium/Albuterol Neb 3 ML IH ONE (12:39)
[2020-06-29 13:50] LABS: Basophils % 0.5 %; Eosinophils # 0.1 K/mcL (0.0-0.6); Eosinophils % 1.1 %; Hematocrit 29.2 % (37.5-50.1); Immature Granulocytes % 0.5 % (0-4); Lymphocytes % 11.8 %; Mean Corpuscular HGB Conc 30.8 g/dL (31.6-35.5); Mean Corpuscular Volume 97.3 fL (83.0-100.0); Mean Platelet Volume 12.5 fL (9.4-12.4); Monocytes # 0.9 K/mcL (0.0-1.3); Neutrophils # 6.5 K/mcL (1.6-8.9); Nucleated Red Blood Cells 0.2 /100 WBC (0); Platelet Count 143 K/mcL (140-400); Red Cell Distribution Width 20.1 % (11.5-14.5); Segmented Neutrophils % 76.1 %; White Blood Count 8.5 K/mcL (4.3-11.1)
[2020-06-29] MEDS ORDERED: Aspirin 325 MG TABLET PO ONE (14:15)
[2020-06-29 14:17] LABS: Albumin 3.3 g/dL (3.5-5.7); Bilirubin,Direct 0.2 mg/dL (0.0-0.2); Bilirubin,Indirect 0.4 mg/dL (0.0-1.0); Bilirubin,Total 0.6 mg/dL (0.3-1.0); Calcium 8.7 mg/dL (8.6-10.3); Globulin 3.4 g/dL (2.4-3.5); Potassium 4.4 mEq/L (3.5-5.1); Total Protein 6.7 g/dL (6.4-8.9); Troponin I 5.85 ng/mL (< 0.04)
[2020-06-29] MEDS ORDERED: Naloxone 0.4 MG/ML INJ IVP PRN (16:34)
[2020-06-29] MEDS ORDERED: Acetaminophen 325 MG TABLET PO PRN (16:34)
[2020-06-29] MEDS ORDERED: *HR* Heparin 5,000 UNIT/ML VIAL IVP PRN ×2 (17:07)
[2020-06-29] MEDS ORDERED: *HR* Heparin 5,000 UNIT/ML VIAL IVP ONE (17:07)
[2020-06-29] MEDS: Heparin 25,000UNIT/250ML 1/2NS 25,000 UNIT/250 ML IV.SOLN IVC SCH (17:49)
[2020-06-29] MEDS ORDERED: *HR* Heparin 5,000 UNIT/ML VIAL SQ SCH (18:00)
[2020-06-29] MEDS: Melatonin 3 MG TABLET PO PRN (20:39)
[2020-06-30 01:13] LABS: Heparin anti-factor XA UFH > 2.00 IU/mL (0.30-0.70)
[2020-06-30 04:22] LABS: Basophils % 0.4 %; Eosinophils # 0.2 K/mcL (0.0-0.6); Eosinophils % 2.1 %; Hematocrit 27.6 % (37.5-50.1); Hemoglobin 8.7 g/dL (12.9-16.9); Immature Granulocytes % 0.4 % (0-4); Lymphocytes # 1.3 K/mcL (0.6-4.6); Lymphocytes % 18.1 %; Mean Corpuscular HGB Conc 31.5 g/dL (31.6-35.5); Mean Corpuscular Hemoglobin 30.3 pg (28.0-33.3); Mean Corpuscular Volume 96.2 fL (83.0-100.0); Mean Platelet Volume 11.4 fL (9.4-12.4); Monocytes # 0.8 K/mcL (0.0-1.3); Monocytes % 11.2 %; Neutrophils # 4.9 K/mcL (1.6-8.9); Platelet Count 125 K/mcL (140-400); Red Blood Count 2.87 M/mcL (4.19-5.50); Red Cell Distribution Width 19.7 % (11.5-14.5); Segmented Neutrophils % 67.8 %; White Blood Count 7.2 K/mcL (4.3-11.1)
[2020-06-30 04:44] LABS: Calcium 8.6 mg/dL (8.6-10.3); Potassium 4.5 mEq/L (3.5-5.1)
[2020-06-30] MEDS ORDERED: 0.9 % Sodium Chloride 250 ML IVC PRN (07:24)
[2020-06-30] MEDS ORDERED: 0.9 % Sodium Chloride 1,000 ML PRIME SCH (07:30)
[2020-06-30] MEDS: allopurinoL 100 MG TABLET PO SCH (08:29)
[2020-06-30] MEDS: Aspirin Enteric Coated 81 MG Tablet PO SCH (08:29)
[2020-06-30] MEDS: *HR* Amiodarone 200 MG TABLET PO SCH (11:24)
[2020-06-30] MEDS ORDERED: Perflutren Lipid Microsphere 1.3 ML in 0.9 % Sodium Chloride 8.7 ML IVP PRN (11:43)
[2020-06-30 13:38] LABS: Hepatitis B Surface Antibody 3.37 mIU/mL
[2020-06-30 13:50] LABS: Hepatitis B Surface Antigen Nonreactive (Nonreactive)
[2020-06-30 17:49] LABS: Prothrombin Time 22.3 Seconds (9.4-12.1)
[2020-06-30 17:59] LABS: Total Protein,Pleural Fluid 2.7 g/dL
[2020-06-30 18:01] LABS: Amylase,Pleural Fluid 20 Units/L (No Ref Range); LDH,Pleural Fluid 150 Units/L (No Ref Range)
[2020-06-30 19:50] LABS: RBC,Pleural Fluid 5000 RBC/mcL
[2020-06-30 21:20] LABS: Appearance of Pleural Fl Hazy (Clear)
[2020-06-30] MEDS: Heparin 25,000UNIT/250ML 1/2NS 25,000 UNIT/250 ML IV.SOLN IVC SCH (23:06)
[2020-07-01 00:29] LABS: Basophils % 0.4 %; Eosinophils # 0.2 K/mcL (0.0-0.6); Eosinophils % 2.1 %; Hematocrit 27.9 % (37.5-50.1); Hemoglobin 8.8 g/dL (12.9-16.9); Immature Granulocytes % 0.3 % (0-4); Lymphocytes # 1.1 K/mcL (0.6-4.6); Lymphocytes % 15.5 %; Mean Corpuscular HGB Conc 31.5 g/dL (31.6-35.5); Mean Corpuscular Hemoglobin 30.1 pg (28.0-33.3); Mean Corpuscular Volume 95.5 fL (83.0-100.0); Mean Platelet Volume 11.8 fL (9.4-12.4); Monocytes # 0.6 K/mcL (0.0-1.3); Monocytes % 8.8 %; Neutrophils # 5.3 K/mcL (1.6-8.9); Platelet Count 117 K/mcL (140-400); Red Blood Count 2.92 M/mcL (4.19-5.50); Red Cell Distribution Width 19.9 % (11.5-14.5); Segmented Neutrophils % 72.9 %; White Blood Count 7.3 K/mcL (4.3-11.1)
[2020-07-01 00:48] LABS: Calcium 8.4 mg/dL (8.6-10.3); Potassium 3.6 mEq/L (3.5-5.1)
[2020-07-01] MEDS: Aspirin Enteric Coated 81 MG Tablet PO SCH (07:28)
[2020-07-01] MEDS: allopurinoL 100 MG TABLET PO SCH (07:29)
[2020-07-01] MEDS ORDERED: 0.9 % Sodium Chloride 250 ML IVC PRN (08:07)
[2020-07-01] MEDS ORDERED: *HR* Heparin 10,000 UNIT/10 ML VIAL IV PRN (08:07)
[2020-07-01] MEDS ORDERED: Albumin 25% 25gram/100mL 25 GM/100 ML IV.SOLN ONE (09:04)
[2020-07-01] MEDS: *HR* Amiodarone 200 MG TABLET PO SCH (10:42)
[2020-07-01] MEDS: Melatonin 3 MG TABLET PO PRN (21:54)
[2020-07-01] MEDS: Heparin 25,000UNIT/250ML 1/2NS 25,000 UNIT/250 ML IV.SOLN IVC SCH (23:51)
[2020-07-02] MEDS ORDERED: *HR* Heparin 10,000 UNIT/10 ML VIAL IV PRN (07:41)
[2020-07-02] MEDS ORDERED: Albumin 25% 25gram/100mL 25 GM/100 ML IV.SOLN IVPB PRN (07:41)
[2020-07-02] MEDS ORDERED: 0.9 % Sodium Chloride 250 ML IVC PRN (07:41)
[2020-07-02 07:45] LABS: Basophils % 0.4 %; Immature Granulocytes % 0.4 % (0-4)
[2020-07-02 07:47] LABS: Eosinophils # 0.2 K/mcL (0.0-0.6); Eosinophils % 2.2 %; Hematocrit 28.5 % (37.5-50.1); Hemoglobin 8.9 g/dL (12.9-16.9); Immature Platelets 5.6 % (1.1-6.1); Lymphocytes # 1.5 K/mcL (0.6-4.6); Lymphocytes % 19.6 %; Mean Corpuscular HGB Conc 31.2 g/dL (31.6-35.5); Mean Corpuscular Hemoglobin 30.6 pg (28.0-33.3); Mean Corpuscular Volume 97.9 fL (83.0-100.0); Mean Platelet Volume 11.9 fL (9.4-12.4); Monocytes # 0.8 K/mcL (0.0-1.3); Monocytes % 9.9 %; Neutrophils # 5.2 K/mcL (1.6-8.9); Red Blood Count 2.91 M/mcL (4.19-5.50); Red Cell Distribution Width 20.3 % (11.5-14.5); Segmented Neutrophils % 67.5 %; White Blood Count 7.7 K/mcL (4.3-11.1)
[2020-07-02 07:54] LABS: Platelet Count 92 K/mcL (140-400)
[2020-07-02 08:08] LABS: Calcium 8.6 mg/dL (8.6-10.3); Potassium 3.7 mEq/L (3.5-5.1)
[2020-07-02] MEDS: Metoprolol XL (24 HR) Succ 25 MG TAB.ER.24H PO SCH (08:26)
[2020-07-02] MEDS: Aspirin Enteric Coated 81 MG Tablet PO SCH (08:32)
[2020-07-02] MEDS: allopurinoL 100 MG TABLET PO SCH (08:33)
[2020-07-02] MEDS: *HR* Amiodarone 200 MG TABLET PO SCH (08:34)
[2020-07-02] MEDS: Heparin 25,000UNIT/250ML 1/2NS 25,000 UNIT/250 ML IV.SOLN IVC SCH ×2 (08:39→17:16)
[2020-07-02 11:30] LABS: Anisocytosis 1+ (Not Present); Large Platelets Present (Not Present); Macrocytosis Present (Not Present); Platelet Estimate Decreased (Normal); Poikilocytosis 1+ (Not Present)
[2020-07-03 02:41] LABS: Basophils % 0.5 %; Eosinophils # 0.2 K/mcL (0.0-0.6); Eosinophils % 3.7 %; Hematocrit 31.3 % (37.5-50.1); Hemoglobin 9.6 g/dL (12.9-16.9); Immature Granulocytes % 0.3 % (0-4); Lymphocytes # 1.2 K/mcL (0.6-4.6); Lymphocytes % 18.6 %; Mean Corpuscular HGB Conc 30.7 g/dL (31.6-35.5); Mean Corpuscular Hemoglobin 30.5 pg (28.0-33.3); Mean Corpuscular Volume 99.4 fL (83.0-100.0); Mean Platelet Volume 12.5 fL (9.4-12.4); Monocytes # 0.6 K/mcL (0.0-1.3); Monocytes % 8.7 %; Neutrophils # 4.4 K/mcL (1.6-8.9); Platelet Count 102 K/mcL (140-400); Red Blood Count 3.15 M/mcL (4.19-5.50); Red Cell Distribution Width 20.7 % (11.5-14.5); Segmented Neutrophils % 68.2 %; White Blood Count 6.4 K/mcL (4.3-11.1)
[2020-07-03 03:06] LABS: Calcium 8.8 mg/dL (8.6-10.3); Potassium 3.6 mEq/L (3.5-5.1)
[2020-07-03] MEDS: Heparin 25,000UNIT/250ML 1/2NS 25,000 UNIT/250 ML IV.SOLN IVC SCH (04:14)
[2020-07-03] MEDS: Aspirin Enteric Coated 81 MG Tablet PO SCH (09:42)
[2020-07-03] MEDS: allopurinoL 100 MG TABLET PO SCH (09:43)
[2020-07-03] MEDS: Metoprolol XL (24 HR) Succ 25 MG TAB.ER.24H PO SCH (09:43)
[2020-07-03] MEDS: *HR* Amiodarone 200 MG TABLET PO SCH (09:43)
[2020-07-04] MEDS: Melatonin 3 MG TABLET PO PRN (02:33)
[2020-07-04 02:44] LABS: Basophils % 0.5 %; Eosinophils # 0.2 K/mcL (0.0-0.6); Eosinophils % 2.4 %; Hematocrit 29.2 % (37.5-50.1); Hemoglobin 9.1 g/dL (12.9-16.9); Immature Granulocytes % 0.3 % (0-4); Lymphocytes # 1.4 K/mcL (0.6-4.6); Mean Corpuscular HGB Conc 31.2 g/dL (31.6-35.5); Mean Corpuscular Hemoglobin 31.2 pg (28.0-33.3); Mean Platelet Volume 12.3 fL (9.4-12.4); Monocytes # 0.7 K/mcL (0.0-1.3); Neutrophils # 5.2 K/mcL (1.6-8.9); Platelet Count 93 K/mcL (140-400); Red Blood Count 2.92 M/mcL (4.19-5.50); Red Cell Distribution Width 20.6 % (11.5-14.5); Segmented Neutrophils % 69.8 %; White Blood Count 7.5 K/mcL (4.3-11.1)
[2020-07-04 02:58] LABS: Calcium 8.8 mg/dL (8.6-10.3); Potassium 4.1 mEq/L (3.5-5.1)
[2020-07-04] MEDS: Heparin 25,000UNIT/250ML 1/2NS 25,000 UNIT/250 ML IV.SOLN IVC SCH (03:27)
[2020-07-04] MEDS: Aspirin Enteric Coated 81 MG Tablet PO SCH (08:58)
[2020-07-04] MEDS: allopurinoL 100 MG TABLET PO SCH (08:58)
[2020-07-04] MEDS: *HR* Amiodarone 200 MG TABLET PO SCH (08:59)
[2020-07-04] MEDS: Metoprolol XL (24 HR) Succ 25 MG TAB.ER.24H PO SCH (08:59)
[2020-07-04 14:46] VITALS: BP 110/67
[2020-07-04] MEDS ORDERED: Apixaban 5 MG TABLET PO ONE (18:00)
[2020-07-05] MEDS ORDERED: Apixaban 5 MG TABLET PO SCH (09:00)
== END 2020-07-04 17:48 | disposition hospice, home (50) | DRG 280 ==
LOC: 2ANU 12:09 → EMEROOARM 12:09 → SUATTDRO 16:21 → 2ANU 18:00
PROVIDERS: ADMIT Internal Medicine; ATTEND Internal Medicine

== ENCOUNTER 2020-07-19 03:59 | Inpatient (IN) ==
[2020-07-19 05:02] LABS: Mean Corpuscular HGB Conc 30.7 g/dL (31.6-35.5)
[2020-07-19 05:04] LABS: INR 2.1; Prothrombin Time 24.3 Seconds (9.4-12.1)
[2020-07-19 05:05] LABS: Basophils % 0.6 %; Eosinophils # 0.2 K/mcL (0.0-0.6); Eosinophils % 2.3 %; Hematocrit 31.6 % (37.5-50.1); Hemoglobin 9.7 g/dL (12.9-16.9); Immature Granulocytes % 0.3 % (0-4); Immature Platelets 8.6 % (1.1-6.1); Lymphocytes # 1.1 K/mcL (0.6-4.6); Lymphocytes % 15.8 %; Mean Corpuscular Hemoglobin 30.9 pg (28.0-33.3); Mean Corpuscular Volume 100.6 fL (83.0-100.0); Mean Platelet Volume 12.8 fL (9.4-12.4); Monocytes # 0.5 K/mcL (0.0-1.3); Monocytes % 7.4 %; Neutrophils # 4.9 K/mcL (1.6-8.9); Red Blood Count 3.14 M/mcL (4.19-5.50); Red Cell Distribution Width 20.8 % (11.5-14.5); Segmented Neutrophils % 73.6 %; White Blood Count 6.7 K/mcL (4.3-11.1)
[2020-07-19 05:08] LABS: Platelet Count 80 K/mcL (140-400)
[2020-07-19] MEDS ORDERED: Vancomycin 2,000 MG/520 ML IV.SOLN IVPB ONE (05:15)
[2020-07-19] MEDS ORDERED: MetroNIDAZOLE 500 MG/100 ML 500 MG/100 ML BAG IVPB ONE (05:16)
[2020-07-19] MEDS ORDERED: Cefepime HCl 1,000 MG in 0.9 % Sodium Chloride Mini Bag 100 ML IVPB ONE (05:16)
[2020-07-19 05:36] LABS: Albumin 3.3 g/dL (3.5-5.7); Albumin/Globulin Ratio 1.1 (1.1-2.2); Bilirubin,Direct 0.2 mg/dL (0.0-0.2); Bilirubin,Indirect 0.4 mg/dL (0.0-1.0); Bilirubin,Total 0.6 mg/dL (0.3-1.0); Calcium 8.9 mg/dL (8.6-10.3); Potassium 4.3 mEq/L (3.5-5.1); Total Protein 6.3 g/dL (6.4-8.9); Troponin I 0.24 ng/mL (< 0.04)
[2020-07-19] MEDS ORDERED: Furosemide 20 MG/2 ML VIAL IVP ONE (06:33)
[2020-07-19] MEDS ORDERED: 0.9 % Sodium Chloride 250 ML IVC PRN (08:17)
[2020-07-19] MEDS ORDERED: Ondansetron 4 MG/2 ML VIAL IVP PRN (08:18)
[2020-07-19] MEDS ORDERED: Acetaminophen 325 MG TABLET PO PRN (08:18)
[2020-07-19] MEDS ORDERED: Naloxone 0.4 MG/ML INJ IVP PRN (08:18)
[2020-07-19] MEDS ORDERED: Torsemide 20 MG TABLET PO PRN (08:20)
[2020-07-19] MEDS ORDERED: 0.9 % Sodium Chloride 1,000 ML PRIME SCH (08:30)
[2020-07-19] MEDS: Metoprolol XL (24 HR) Succ 25 MG TAB.ER.24H PO SCH (10:29)
[2020-07-19] MEDS: allopurinoL 100 MG TABLET PO SCH (10:32)
[2020-07-19] MEDS: Aspirin Enteric Coated 81 MG Tablet PO SCH (10:32)
[2020-07-19] MEDS: *HR* Amiodarone 200 MG TABLET PO SCH (10:32)
[2020-07-19] MEDS: Apixaban 2.5 MG TABLET PO SCH ×2 (10:32→20:25)
[2020-07-19] MEDS ORDERED: Vancomycin 1 EACH in 0.9 % Sodium Chloride 250 ML IVPB PRN (11:00)
[2020-07-19 11:12] LABS: Thyroid Stimulating Hormone 22.624 mcIU/mL (0.340-5.600)
[2020-07-20 01:22] LABS: Hematocrit 30.6 % (37.5-50.1); Hemoglobin 9.7 g/dL (12.9-16.9); Immature Platelets 7.6 % (1.1-6.1); Mean Corpuscular HGB Conc 31.7 g/dL (31.6-35.5); Mean Corpuscular Volume 97.8 fL (83.0-100.0); Mean Platelet Volume 11.7 fL (9.4-12.4); Red Blood Count 3.13 M/mcL (4.19-5.50); Red Cell Distribution Width 20.6 % (11.5-14.5); White Blood Count 6.1 K/mcL (4.3-11.1)
[2020-07-20 01:41] LABS: INR 2.9; Prothrombin Time 32.7 Seconds (9.4-12.1)
[2020-07-20 01:48] LABS: Calcium 8.5 mg/dL (8.6-10.3); Phosphorous 4.3 mg/dL (2.7-4.5)
[2020-07-20] MEDS: *HR* Amiodarone 200 MG TABLET PO SCH (08:55)
[2020-07-20] MEDS: Metoprolol XL (24 HR) Succ 25 MG TAB.ER.24H PO SCH (08:55)
[2020-07-20] MEDS: allopurinoL 100 MG TABLET PO SCH (08:55)
[2020-07-20] MEDS: Aspirin Enteric Coated 81 MG Tablet PO SCH (08:55)
[2020-07-20] MEDS: Apixaban 2.5 MG TABLET PO SCH ×2 (08:55→21:20)
[2020-07-20 10:05] LABS: Troponin I 0.24 ng/mL (< 0.04)
[2020-07-20] MEDS ORDERED: Cefepime HCl 1,000 MG in 0.9 % Sodium Chloride Mini Bag 100 ML IVPB SCH (14:00)
[2020-07-20] MEDS: Levothyroxine Sodium 100 MCG VIAL IVP SCH (14:15)
[2020-07-20 14:31] LABS: Triiodothyronine (T3) Free 1.36 pg/mL (2.50-3.90)
[2020-07-21 01:44] LABS: Calcium 8.7 mg/dL (8.6-10.3); Phosphorous 5.5 mg/dL (2.7-4.5); Potassium 4.3 mEq/L (3.5-5.1)
[2020-07-21] MEDS: Levothyroxine Sodium 100 MCG VIAL IVP SCH (06:46)
[2020-07-21] MEDS ORDERED: Albumin 25% 25gram/100mL 25 GM/100 ML IV.SOLN IVPB PRN (06:59)
[2020-07-21] MEDS ORDERED: 0.9 % Sodium Chloride 250 ML IVC PRN (06:59)
[2020-07-21] MEDS: allopurinoL 100 MG TABLET PO SCH (08:05)
[2020-07-21] MEDS: Apixaban 2.5 MG TABLET PO SCH (08:05)
[2020-07-21] MEDS: Aspirin Enteric Coated 81 MG Tablet PO SCH (08:05)
[2020-07-21] MEDS: *HR* Amiodarone 200 MG TABLET PO SCH (08:05)
[2020-07-21 08:48] LABS: INR 2.8; Prothrombin Time 31.9 Seconds (9.4-12.1)
[2020-07-21] MEDS ORDERED: *HR* Heparin 10,000 UNIT/10 ML VIAL ONE (09:19)
[2020-07-21] MEDS: Metoprolol XL (24 HR) Succ 25 MG TAB.ER.24H PO SCH (14:28)
[2020-07-21] MEDS ORDERED: Saline Nasal Spray 44 ML BOTTLE NS PRN ×2 (15:36→15:40)
[2020-07-21] MEDS ORDERED: Oxymetazoline Nasal SPRAY BOTTLE NS PRN ×2 (15:36→15:39)
[2020-07-21 18:23] VITALS: BP 104/55
== END 2020-07-21 23:18 | disposition short-term general hospital (02) | DRG 291 ==
LOC: EMEROOARM 03:59 → 2NNU 03:59 → CDU 07-21 09:49 → 2ANU 07-21 18:18
PROVIDERS: ADMIT Internal Medicine; ATTEND Internal Medicine